=== PATIENT | female | born 1940 | race Caucasian/White ===

== ENCOUNTER → 2019-09-27 | Outpatient (CLI) | payer MEDICARE, MEDICAID ==
[~2019-09-27] MED LIST: REGADENOSON 0.4 MG/5 ML SYR (LEXISCAN) IV ONE
[2019-09-27 09:19] LABS: BASOPHILS # (AUTO) 0.1 10^3/uL (0.0-0.1); BASOPHILS % (AUTO) 1 % (0-10); EOSINOPHILS # (AUTO) 0.4 10^3/uL (0.0-0.3); EOSINOPHILS % (AUTO) 5 % (0-10); HEMATOCRIT 44 % (35-52); HEMOGLOBIN 13.7 G/DL (11.5-16.0); LYMPHOCYTES # (AUTO) 2.4 X 10^3 (1.0-4.0); LYMPHOCYTES % (AUTO) 25 % (12-44); MEAN CORPUSCULAR HEMOGLOBIN 27 PG (25-34); MEAN CORPUSCULAR HGB CONC 31 G/DL (32-36); MEAN CORPUSCULAR VOLUME 85 FL (80-99); MEAN PLATELET VOLUME 10.2 FL (7.4-10.4); MONOCYTES % (AUTO) 10 % (0-12); NEUTROPHILS # (AUTO) 5.5 X 10^3 (1.8-7.8); NEUTROPHILS % (AUTO) 59 % (42-75); PLATELET COUNT 268 10^3/uL (130-400); RED CELL DISTRIBUTION WIDTH 14.7 % (10.0-14.5); WHITE BLOOD COUNT 9.4 10^3/uL (4.3-11.0)
[2019-09-27 09:42] LABS: ALBUMIN 3.7 GM/DL (3.2-4.5); BILIRUBIN,TOTAL 0.4 MG/DL (0.1-1.0); CALCIUM 9.2 MG/DL (8.5-10.1); CREATININE SERUM 1.2 MG/DL (0.60-1.30); MAGNESIUM 1.8 MG/DL (1.6-2.4); POTASSIUM 4.6 MMOL/L (3.6-5.0); TOTAL PROTEIN 6.8 GM/DL (6.4-8.2)
[2019-09-27 09:56] LABS: ERYTHROCYTE SEDIMENTATION RATE 5 MM/HR (0-30)
--- NOTE | 2019-09-28 11:32 | STRESS TEST ---
DATE OF SERVICE: 09/27/2019 RESTING AND POST REGADENOSON TECHNETIUM-99M TETROFOSMIN SPECT CT IMAGING CLINICAL DIAGNOSES: Chronic diastolic congestive heart failure, shortness of breath, type 2 diabetes. Baseline images were carried out after injection of 10.84 mCi of technetium-99m Tetrofosmin. This was followed by 0.4 mg regadenoson and 32.5 mCi of technetium-99m Tetrofosmin for stress imaging. The electrocardiogram showed sinus rhythm with isolated premature atrial contractions. The electrocardiogram did not change significantly with regadenoson infusion. The patient tolerated the procedure well. Review of images at rest and following stress does not indicate any significant perfusion defects consistent with myocardial ischemia or infarction. Gated images show normal global left ventricular systolic function with normal regional wall motion. Left ventricular ejection fraction is calculated to be 82%. TID is absent (0.99). CONCLUSIONS: 1. No evidence of any significant myocardial ischemia or infarction on this study. 2. Normal regional wall motion. 3. Normal to hyperdynamic left ventricular systolic function with a calculated ejection fraction of 82%. Job ID: [id number] DocumentID: [id number] Dictated Date: 09/28/2019 08:49:27 [employer] Date: 09/28/2019 11:31:13 Dictated By: ZHAO SANFORD MD, MA, FACP, FACC,
== END ==
LOC: CARD 08:56
PROVIDERS: ATTEND Internal Medicine Cardiovascular Disease
DX: I48.0 Paroxysmal atrial fibrillation (principal); E11.9 Type 2 diabetes mellitus without complications; I50.32 Chronic diastolic (congestive) heart failure; I73.9 Peripheral vascular disease, unspecified
CPT/HCPCS: 36415; 78452; 80053; 80061; 83735; 85025; 85652; 93017; 93306; 93923

== ENCOUNTER → 2021-09-23 | Outpatient (CLI) | payer MEDICARE, MEDICAID | LOC: CARD 12:21 | PROVIDERS: ATTEND Nurse Practitioner Family | DX: I34.0 Nonrheumatic mitral (valve) insufficiency (principal); I51.7 Cardiomegaly; D17.9 Benign lipomatous neoplasm, unspecified | CPT/HCPCS: 93306 ==

== ENCOUNTER → 2021-12-24 | Outpatient (CLI) | payer MEDICARE, MEDICAID ==
[~2021-12-24] MED LIST changes: +CARV6.252 PO; -REGADENOSON 0.4 MG/5 ML SYR (LEXISCAN) IV ONE
[2021-12-24 12:55] LABS: CALCIUM 8.7 MG/DL (8.5-10.1); CREATININE SERUM 1.39 MG/DL (0.60-1.30); MAGNESIUM 1.9 MG/DL (1.6-2.4); POTASSIUM 4.2 MMOL/L (3.6-5.0)
== END ==
LOC: LAB 12:10
PROVIDERS: ATTEND Nurse Practitioner Family
DX: D17.9 Benign lipomatous neoplasm, unspecified (principal); I42.0 Dilated cardiomyopathy; I48.0 Paroxysmal atrial fibrillation; I34.0 Nonrheumatic mitral (valve) insufficiency; I50.42 Chronic combined systolic (congestive) and diastolic (congestive) heart failure
CPT/HCPCS: 36415; 80048; 83735

== ENCOUNTER 2021-12-27 13:34 | Emergency (ER) | payer MEDICARE, MEDICAID ==
[~2021-12-27] VITALS: Ht 154.9 cm; Wt 97.9 kg
--- NOTE | 2021-12-27 14:22 | ED Cardiac General ---
History of Present Illness General Chief Complaint: Cardiac/General Problems Stated Complaint: HEART PROBLEMS Nursing Triage Note: Pt arrival to ER after being sent here from Dr. Sparks office because she had a low blood pressure reading at home. Pt denies complaints and is unsure why she was sent here. Source: patient History of Present Illness Date Seen by Provider: Dec 27, 2021 Time Seen by Provider: 14:10 Initial Comments Patient is an 81-year-old female who presents to the emergency department today with a chief complaint of low blood pressure. Reportedly patient's home health nurse found her blood pressure to be in the 80s systolic and call Dr. Castillo's office, her muffler installer and they instructed her to come to the emergency department. Patient tells me that she was seen last evening at [facility] and was started on 2 new medications for rapid heartbeat. She states she had a post of labs done as well as chest x-ray and EKGs. She was started on Cardizem 120 and spironolactone 25 mg. She denies shortness of breath or chest pain. She denies swelling in her lower extremities. No fevers or chills. No GI or symptoms. Specifically no burning with urination. She has a history of atrial fibrillation in the past per review of her home medications she is anticoagulated on Xarelto. She does state with position change she feels a little bit dizzy. She is tired of feeling "sick". All other review of systems reviewed and negative except as stated. NTG SL LEVEL VIAL CURVATURE GAUGER: No ASA po LEVEL VIAL CURVATURE GAUGER: No Associated Systoms: Other (Slightly dizzy) Allergies and Home Medications Allergies Coded Allergies: No Known Allergies (Verified Allergy, Unknown, 04/01/06) Patient Home Medication List Home Medication List Reviewed: Yes Carvedilol (Carvedilol) 6.25 Mg Tablet, 6.25 MG PO BID Prescribed by: JIMY ENRIQUEZ on 12/27/21 1520 Review of Systems Review of Systems Constitutional: see HPI EENTM: No Symptoms Reported Respiratory: No Symptoms Reported Cardiovascular: No Symptoms Reported Gastrointestinal: No Symptoms Reported Genitourinary: Denies Burning; Frequency Musculoskeletal: no symptoms reported Skin: no symptoms reported Psychiatric/Neurological: Other (Mild dizziness with position) All Other Systems Reviewed Negative Unless Noted: Yes Past Antgfbi-Zkuffj-Bupvra Hx Patient Social History Tobacco Use?: No Use of E-Cig and/or Vaping dev: No Substance use?: No Alcohol Use?: No Pt feels they are or have been: No Immunizations Up To Date Influenza Vaccine Up-to-Date: No; Not Current Physical Exam Vital Signs Vital Signs - First Documented 12/27/21 13:49 Temp 36.6 Pulse 124 Resp 24 B/P (MAP) 111/58 (75) Pulse Ox 96 O2 Delivery Nasal Cannula Capillary Refill : Less Than 3 Seconds Height, Weight, BMI Height: '" Weight: lbs. oz. kg; 40.00 BMI Method: General Appearance: No Apparent Distress, WD/WN Neck: Normal Inspection Respiratory: Lungs Clear, Normal Breath Sounds, No Accessory Muscle Use, No Respiratory Distress Cardiovascular: Normal Peripheral Pulses, Irregularly Irregular (Rate in the mid 90s) Gastrointestinal: Non Tender, Soft Extremity: Normal Inspection, Normal Range of Motion, No Pedal Edema Neurologic/Psychiatric: Alert, Oriented x3, No Motor/Sensory Deficits, Normal Mood/Affect Skin: Normal Color, Warm/Dry Progress/Results/Core Measures Results/Orders Lab Results Laboratory Tests Test 12/27/21 14:44 Range/Units White Blood Count 11.1 H 4.3-11.0 10^3/uL Red Blood Count 3.55 L 3.80-5.11 10^6/uL Hemoglobin 8.6 L 11.5-16.0 g/dL Hematocrit 29 L 35-52 % Mean Corpuscular Volume 81 80-99 fL Mean Corpuscular Hemoglobin 24 L 25-34 pg Mean Corpuscular Hemoglobin Concent 30 L 32-36 g/dL Red Cell Distribution Width 17.1 H 10.0-14.5 % Platelet Count 255 130-400 10^3/uL Mean Platelet Volume 10.5 9.0-12.2 fL Immature Granulocyte % (Auto) 1 % Neutrophils (%) (Auto) 70 42-75 % Lymphocytes (%) (Auto) 14 12-44 % Monocytes (%) (Auto) 13 H 0-12 % Eosinophils (%) (Auto) 2 0-10 % Basophils (%) (Auto) 1 0-10 % Neutrophils # (Auto) 7.8 1.8-7.8 10^3/uL Lymphocytes # (Auto) 1.6 1.0-4.0 10^3/uL Monocytes # (Auto) 1.4 H 0.0-1.0 10^3/uL Eosinophils # (Auto) 0.2 0.0-0.3 10^3/uL Basophils # (Auto) 0.1 0.0-0.1 10^3/uL Immature Granulocyte # (Auto) 0.1 0.0-0.1 10^3/uL Sodium Level 142 135-145 MMOL/L Potassium Level 4.0 3.6-5.0 MMOL/L Chloride Level 98 98-107 MMOL/L Carbon Dioxide Level 30 21-32 MMOL/L Anion Gap 14 5-14 MMOL/L Blood Urea Nitrogen 36 H 7-18 MG/DL Creatinine 1.32 H 0.60-1.30 MG/DL Estimat Glomerular Filtration Rate 41 BUN/Creatinine Ratio 27 Glucose Level 157 H 70-105 MG/DL Calcium Level 8.8 8.5-10.1 MG/DL My Orders Orders - JIMY ENRIQUEZ MD Ekg Tracing (12/27/21 13:39) Ed Iv/Invasive Line Start (12/27/21 14:34) Cbc With Automated Diff (12/27/21 14:34) Basic Metabolic Panel (12/27/21 14:34) Ns (Ivpb) (Sodium Chloride 0.9%) (12/27/21 14:45) Medications Given in ED Current Medications Medications Dose Ordered Sig/Pasquale Route Start Time Stop Time Status Last Admin Dose Admin Sodium Chloride 250 ml @ 999 mls/hr Q16M ONCE IV 12/27/21 14:45 12/27/21 15:00 DC 12/27/21 14:48 999 MLS/HR Vital Signs/I&O 12/27/21 13:49 Temp 36.6 Pulse 124 Resp 24 B/P (MAP) 111/58 (75) Pulse Ox 96 O2 Delivery Nasal Cannula Blood Pressure Mean: 75 Progress Progress Note #1: Time: 14:28 Progress Note Discussed with Dr Castillo - will talk to the office and call me back Progress Note #2: Time: 14:[address] Castillo recommends rechecking her blood work, giving her a little fluid bolus and reducing the dose of her carvedilol down to 6.25 mg twice daily. Obvious replacement of electrolytes as needed. After that she can go home. Progress Note #3: Time: 15:18 Progress Note Patient reassessed, blood pressure has been consistently above 115 systolic. She is still without complaints. Heart rate is controlled in the low 90s upper 80s. She did receive her 250 saline bolus. We talked about her low hemoglobin. She states that she was quite "bound up" a few days ago and had to "dig it out". She states she bled "a lot". But she has not bled since then. She states she has pretty large external hemorrhoids. I encouraged her to follow-up with Dr. Cervantes regarding her blood count, that needs to be rechecked in a week. I did also encourage her to start taking an iron supplement daily. She is comfortable with this plan of care. All questions have been sought and answe red. She is also advised to follow-up with Dr. Castillo. Initial ECG Impression Date: Dec 27, 2021 Initial ECG Impression Time: 13:43 Initial ECG Rate: 123 Initial ECG Rhythm: A Fib/Flutter Comment Atrial fibrillation with rapid ventricular response at 123. No significant ST depression noted although she does have a little bit of change in the anterior leads. No ST segment elevation noted Departure Impression Primary Impression: Atrial fibrillation Qualified Codes: I48.11 - Longstanding persistent atrial fibrillation Additional Impressions: Low blood pressure reading Anemia Qualified Codes: D64.9 - Anemia, unspecified Disposition: 01 HOME, SELF-CARE Condition: Improved Departure-Patient Inst. Decision time for Depature: 15:11 Referrals: ZHAO CASTILLO MD FACP [facility] NORMA CERVANTES MD (PCP) Primary Care Physician Patient Instructions: Atrial Fibrillation (DC) Add. Discharge Instructions: Please continue all of your home medications except for the carvedilol 12.[address] Castillo would like you to take 6.25 mg twice daily. You can continue the diltiazem and the spironolactone as started last evening at [facility]. Take a daily Iron Supplement. Please call on Thursday for a follow-up appointment with Dr. Castillo. Please come back to the emergency department for any new, concerning or emergent complaints especially chest pain, palpitations, worsening shortness of breath or other emergent concerns. Follow up with Dr Cervantes on Thursday - you will need your blood counts rechecked soon. Scripts Carvedilol (Carvedilol) 6.25 Mg Tablet 6.25 MG PO BID, #60 TAB Prov: JIMY ENRIQUEZ MD 12/27/21 Copy Copies To 1: ZHAO CASTILLO MD FACP [facility] JIMY ENRIQUEZ MD Dec 27, 2021 14:22
[2021-12-27] MEDS ORDERED: NS (IVPB) 250 ML IV ONE (14:45)
[2021-12-27 14:50] LABS: BASOPHILS # (AUTO) 0.1 10^3/uL (0.0-0.1); BASOPHILS % (AUTO) 1 % (0-10); EOSINOPHILS # (AUTO) 0.2 10^3/uL (0.0-0.3); EOSINOPHILS % (AUTO) 2 % (0-10); HEMATOCRIT 29 % (35-52); HEMOGLOBIN 8.6 g/dL (11.5-16.0); LYMPHOCYTES # (AUTO) 1.6 10^3/uL (1.0-4.0); LYMPHOCYTES % (AUTO) 14 % (12-44); MEAN CORPUSCULAR HEMOGLOBIN 24 pg (25-34); MEAN CORPUSCULAR HGB CONC 30 g/dL (32-36); MEAN CORPUSCULAR VOLUME 81 fL (80-99); MEAN PLATELET VOLUME 10.5 fL (9.0-12.2); MONOCYTES # (AUTO) 1.4 10^3/uL (0.0-1.0); MONOCYTES % (AUTO) 13 % (0-12); NEUTROPHILS # (AUTO) 7.8 10^3/uL (1.8-7.8); NEUTROPHILS % (AUTO) 70 % (42-75); PLATELET COUNT 255 10^3/uL (130-400); WHITE BLOOD COUNT 11.1 10^3/uL (4.3-11.0)
[2021-12-27 15:07] LABS: CALCIUM 8.8 MG/DL (8.5-10.1); CREATININE SERUM 1.32 MG/DL (0.60-1.30)
[2021-12-27] MEDS ORDERED: CARV6.252 PO (15:20)
[2021-12-27 15:39] VITALS: BP 125/82
== END 2021-12-27 15:38 | disposition home or self-care (01) ==
LOC: EDUNIT# 13:34 → ER 13:37
DX: I48.11 Longstanding persistent atrial fibrillation (principal); D64.9 Anemia, unspecified; R03.0 Elevated blood-pressure reading, without diagnosis of hypertension; Z79.01 Long term (current) use of anticoagulants
CPT/HCPCS: 36415; 80048; 85025; 93005

== ENCOUNTER → 2022-01-07 | Outpatient (CLI) | payer MEDICARE, MEDICAID ==
[2022-01-07 13:21] LABS: ALBUMIN 3.7 GM/DL (3.2-4.5); POTASSIUM 4.5 MMOL/L (3.6-5.0)
[2022-01-07 13:22] LABS: CALCIUM 8.9 MG/DL (8.5-10.1)
[2022-01-07 13:23] LABS: TOTAL PROTEIN 6.3 GM/DL (6.4-8.2)
[2022-01-07 13:25] LABS: BILIRUBIN,TOTAL 0.7 MG/DL (0.1-1.0)
[2022-01-07 13:27] LABS: CREATININE SERUM 1.46 MG/DL (0.60-1.30)
[2022-01-07 13:30] LABS: MAGNESIUM 1.9 MG/DL (1.6-2.4)
== END ==
LOC: LAB 12:49
PROVIDERS: ATTEND Internal Medicine Cardiovascular Disease
DX: I48.0 Paroxysmal atrial fibrillation (principal); D17.9 Benign lipomatous neoplasm, unspecified; I42.0 Dilated cardiomyopathy; I34.0 Nonrheumatic mitral (valve) insufficiency; R06.02 Shortness of breath; I50.42 Chronic combined systolic (congestive) and diastolic (congestive) heart failure
CPT/HCPCS: 36415; 80053; 80162; 83735

== ENCOUNTER 2022-02-04 08:45 | Inpatient (IN) | payer MEDICARE, MEDICAID ==
[~2022-02-04] VITALS: Ht 197 cm; Wt 95.6 kg
[~2022-02-04 08:45] MED LIST changes: +ALB0.5V INH; +DIGO-20 PO; +DILT360T11 PO; +DOCU100T2 PO; +FAMO20TA3 PO; +FERR-65 PO; +FURO40TA4 PO; +GABA300C PO; +RT-ALBUINH INH
[2022-02-04] MEDS ORDERED: NS IV 1000 ML 1,000 ML IV SCH (09:30)
[2022-02-04 09:31] LABS: BASOPHILS # (AUTO) 0.2 10^3/uL (0.0-0.1); BASOPHILS % (AUTO) 2 % (0-10); EOSINOPHILS # (AUTO) 0.3 10^3/uL (0.0-0.3); EOSINOPHILS % (AUTO) 3 % (0-10); HEMATOCRIT 39 % (35-52); HEMOGLOBIN 10.9 g/dL (11.5-16.0); LYMPHOCYTES # (AUTO) 1.8 10^3/uL (1.0-4.0); LYMPHOCYTES % (AUTO) 17 % (12-44); MEAN CORPUSCULAR HEMOGLOBIN 23 pg (25-34); MEAN CORPUSCULAR HGB CONC 28 g/dL (32-36); MEAN CORPUSCULAR VOLUME 81 fL (80-99); MEAN PLATELET VOLUME 10.5 fL (9.0-12.2); MONOCYTES # (AUTO) 1.3 10^3/uL (0.0-1.0); MONOCYTES % (AUTO) 12 % (0-12); NEUTROPHILS # (AUTO) 7.3 10^3/uL (1.8-7.8); NEUTROPHILS % (AUTO) 67 % (42-75); PLATELET COUNT 388 10^3/uL (130-400); WHITE BLOOD COUNT 10.9 10^3/uL (4.3-11.0)
[2022-02-04 09:32] LABS: BILIRUBIN,URINE NEGATIVE (NEGATIVE); CLARITY,URINE CLEAR; COLOR,URINE YELLOW; GLUCOSE, URINE (UA) 3+ (NEGATIVE); KETONES,URINE NEGATIVE (NEGATIVE); LEUKOCYTE ESTERASE ,URINE NEGATIVE (NEGATIVE); NITRITE,URINE NEGATIVE (NEGATIVE); PROTEIN,URINE NEGATIVE (NEGATIVE)
[2022-02-04 09:39] LABS: BACTERIA,URINE TRACE /HPF; SQUAMOUS EPITHELIAL CELL,UR 0-2 /HPF
[2022-02-04 09:40] LABS: ALBUMIN 3.8 GM/DL (3.2-4.5); POTASSIUM 5.2 MMOL/L (3.6-5.0)
[2022-02-04 09:41] LABS: CALCIUM 8.4 MG/DL (8.5-10.1)
[2022-02-04 09:42] LABS: TOTAL PROTEIN 6.5 GM/DL (6.4-8.2)
[2022-02-04 09:44] LABS: BILIRUBIN,TOTAL 0.5 MG/DL (0.1-1.0)
[2022-02-04 09:46] LABS: CREATININE SERUM 1.7 MG/DL (0.60-1.30)
--- NOTE | 2022-02-04 09:47 | ED General ---
General Chief Complaint: Glucose Problems Stated Complaint: HIGH BLOOD SUGAR 700 Nursing Triage Note: PATIENT PRESENTS FROM [facility] WITH A BLOOD GLUCOSE GREATER THAN 700. PATIENT STATES SHE WAS HERE THIS AM FOR A PROCEDURE. Source of Information: Patient Exam Limitations: No Limitations History of Present Illness Date Seen by Provider: Feb 04, 2022 Time Seen by Provider: 09:20 Initial Comments Patient to the ER by private conveyance from the cardiac Offset Press Operator where she was going for a scheduled cardioversion for atrial fibrillation with Dr. Castillo. They report she had a blood sugar above 700. She says she is not had any new symptoms lately. She is not thinking very clearly according to her sister SIDDHARTH who accompanies her. No dysuria but she says she does have urgency of urine. No shortness of breath or cough. She uses oxygen 2 L as needed by nasal cannula at home. She is on Xarelto, Toujeo 30 units daily and Humalog 20 units 3 times daily. She states she has not been taking her insulin quite like she should here lately. She did not want to elaborate. Allergies and Home Medications Allergies Coded Allergies: [place] Known Allergies (Verified Allergy, Unknown, 04/01/06) Patient Home Medication List Home Medication List Reviewed: Yes Albuterol Sulfate (Ventolin Hfa) 1 Puff Puff, 2 PUFF INH QID, (Reported) Entered as Reported by: JUD BOYCE on 02/04/22 0840 Albuterol Sulfate (Albuterol Sulfate) 2.5 Mg/0.5 Ml Vial.neb, 2.5 MG INH TID PRN for AIR HUNGER, (Reported) Entered as Reported by: JUD BOYCE on 02/04/22 0840 Carvedilol (Carvedilol) 6.25 Mg Tablet, 6.25 MG PO BID Prescribed by: JIMY ENRIQUEZ on 12/27/21 1520 Digoxin (Lanoxin) 125 Mcg (0.125 Mg) Tablet, 125 MCG PO DAILY, (Reported) Entered as Reported by: JUD BOYCE on 02/04/22 0840 Diltiazem HCl (Diltiazem ER) 360 Mg Tab.er.24h, 360 MG PO DAILY, (Reported) Entered as Reported by: JUD BOYCE on 02/04/22 0840 Docusate Sodium (Docusate Sodium) 100 Mg Tablet, 100 MG PO DAILY, (Reported) Entered as Reported by: JUD BOYCE on 02/04/22839 Famotidine (Acid Division Sergeant (FAMOTIDINE)) 20 Mg Tablet, 20 MG PO BID, (Reported) Entered as Reported by: JUD BOYCE on 02/04/22839 Ferrous Sulfate (Feosol) 325 Mg (65 Mg Iron) Tablet, 325 MG PO, (Reported) Entered as Reported by: JUD BOCYE on 02/04/22839 Furosemide (Furosemide) 40 Mg Tablet, 40 MG PO DAILY, (Reported) Entered as Reported by: JUD BOYCE on 02/04/22839 Gabapentin (Neurontin) 300 Mg Capsule, 300 MG PO BID, (Reported) Entered as Reported by: JUD BOYCE on 02/04/22839 Review of Systems Review of Systems Constitutional: No chills, No diaphoresis EENTM: No ear discharge, No ear pain Respiratory: No cough, No short of breath Cardiovascular: No chest pain, No edema Gastrointestinal: No abdominal pain, No nausea, No vomiting Genitourinary: No discharge, No dysuria Musculoskeletal: No back pain, No joint pain All Other Systems Reviewed Negative Unless Noted: Yes Past Mgtcesm-Ddnaev-Yogpdv Hx Patient Social History Tobacco Use?: No Use of E-Cig and/or Vaping dev: No Substance use?: No Alcohol Use?: No Pt feels they are or have been: No Immunizations Up To Date Influenza Vaccine Up-to-Date: Yes; Up-to-Date Past Medical History Gallbladder COPD Atrial Fibrillation, Cardiomyopathy Physical Exam Vital Signs Vital Signs - First Documented 02/04/22 09:14 Temp 36.0 Pulse 100 Resp 18 B/P (MAP) 124/95 (105) Pulse Ox 98 O2 Delivery Nasal Cannula O2 Flow Rate 2.00 Capillary Refill : Less Than 3 Seconds Height, Weight, BMI Height: '" Weight: lbs. oz. kg; 23.00 BMI Method: General Appearance: No Apparent Distress, WD/WN Eyes: Bilateral Eye Normal Inspection, Bilateral Eye PERRL, Bilateral Eye EOMI HEENT: PERRL/EOMI, TMs Normal, Pharynx Normal, Moist Mucous Membranes Neck: Full Range of Motion, Normal Inspection Respiratory: Lungs Clear, Normal Breath Sounds, No Accessory Muscle Use, No Respiratory Distress Cardiovascular: Regular Rate, Rhythm, No Edema, Normal Peripheral Pulses Gastrointestinal: Normal Bowel Sounds, Non Tender, Soft Extremity: Normal Capillary Refill, Normal Inspection Neurologic/Psychiatric: Alert, Normal Mood/Affect, Other Skin: Normal Color, Warm/Dry Progress/Results/Core Measures Suspected Sepsis SIRS Temperature: Pulse: 100 Respiratory Rate: 18 Laboratory Tests 02/04/22 09:20: White Blood Count 10.9 Blood Pressure 124 /95 Mean: 105 Laboratory Tests 02/04/22 09:20: Creatinine 1.70H, Platelet Count 388, Total Bilirubin 0.5 Results/Orders Lab Results Laboratory Tests Test 02/04/22 09:20 02/04/22 09:46 Range/Units White Blood Count 10.9 4.3-11.0 10^3/uL Red Blood Count 4.77 3.80-5.11 10^6/uL Hemoglobin 10.9 L 11.5-16.0 g/dL Hematocrit 39 35-52 % Mean Corpuscular Volume 81 80-99 fL Mean Corpuscular Hemoglobin 23 L 25-34 pg Mean Corpuscular Hemoglobin Concent 28 L 32-36 g/dL Red Cell Distribution Width 18.8 H 10.0-14.5 % Platelet Count 388 130-400 10^3/uL Mean Platelet Volume 10.5 9.0-12.2 fL Immature Granulocyte % (Auto) 0 % Neutrophils (%) (Auto) 67 42-75 % Lymphocytes (%) (Auto) 17 12-44 % Monocytes (%) (Auto) 12 0-12 % Eosinophils (%) (Auto) 3 0-10 % Basophils (%) (Auto) 2 0-10 % Neutrophils # (Auto) 7.3 1.8-7.8 10^3/uL Lymphocytes # (Auto) 1.8 1.0-4.0 10^3/uL Monocytes # (Auto) 1.3 H 0.0-1.0 10^3/uL Eosinophils # (Auto) 0.3 0.0-0.3 10^3/uL Basophils # (Auto) 0.2 H 0.0-0.1 10^3/uL Immature Granulocyte # (Auto) 0.0 0.0-0.1 10^3/uL Urine Color YELLOW Urine Clarity CLEAR Urine pH 6.0 5-9 Urine Specific [place] <=1.005 1.016-1.022 Urine Protein NEGATIVE NEGATIVE Urine Glucose (UA) 3+ H NEGATIVE Urine Ketones NEGATIVE NEGATIVE Urine Nitrite NEGATIVE NEGATIVE Urine Bilirubin NEGATIVE NEGATIVE Urine Urobilinogen 0.2 < = 1.0 MG/DL Urine Leukocyte Esterase NEGATIVE NEGATIVE Urine RBC (Auto) NEGATIVE NEGATIVE Urine RBC NONE /HPF Urine WBC 5-10 H /HPF Urine Squamous Epithelial Cells 0-2 /HPF Urine Crystals NONE /LPF Urine Bacteria TRACE /HPF Urine Casts NONE /LPF Urine Mucus NEGATIVE /LPF Urine Culture Indicated YES Sodium Level 132 L 135-145 MMOL/L Potassium Level 5.2 H 3.6-5.0 MMOL/L Chloride Level 94 L 98-107 MMOL/L Carbon Dioxide Level 27 21-32 MMOL/L Anion Gap 11 5-14 MMOL/L Blood Urea Nitrogen 25 H 7-18 MG/DL Creatinine 1.70 H 0.60-1.30 MG/DL Estimat Glomerular Filtration Rate 30 BUN/Creatinine Ratio 15 Glucose Level 722 *H 70-105 MG/DL Calcium Level 8.4 L 8.5-10.1 MG/DL Corrected Calcium 8.6 8.5-10.1 MG/DL Magnesium Level 2.4 1.6-2.4 MG/DL Total Bilirubin 0.5 0.1-1.0 MG/DL Aspartate Amino Transf (AST/SGOT) 17 5-34 U/L Alanine Aminotransferase (ALT/SGPT) 29 0-55 U/L Alkaline Phosphatase 81 40-136 U/L C-Reactive Protein High Sensitivity 0.38 0.00-0.50 MG/DL Total Protein 6.5 6.4-8.2 GM/DL Albumin 3.8 3.2-4.5 GM/DL Beta-Hydroxybutyrate (Chem panel) 0.19 0.00-0.27 MMOL/L Blood Gas Puncture Site LEFT RADIAL Blood Gas Patient Temperature 36.6 Arterial Blood pH 7.29 *L 7.37-7.43 Arterial Blood Partial Pressure CO2 57 H 35-45 MMHG Arterial Blood Partial Pressure O2 157 H 79-93 MMHG Arterial Blood HCO3 27 23-27 MMOL/L Arterial Blood Total CO2 28.5 21.0-31.0 MMOL/L Arterial Blood Oxygen Saturation 100 94-100 % Arterial Blood Base Excess 0.8 -2.5-2.5 MMOL/L Rajesh Test POSITIVE Blood Gas Ventilator Setting NO Blood Gas Inspired Oxygen 2 L My Orders Orders - NOREEN,GERMAN J Accucheck Stat ONCE (02/04/22 09:25) Cbc With Automated Diff (02/04/22 09:25) Comprehensive Metabolic Panel (02/04/22 09:25) Hs C Reactive Protein (02/04/22 09:25) Ua Culture If Indicated (02/04/22 09:25) Beta Hydroxybutyrate (02/04/22 09:25) Magnesium (02/04/22 09:25) Ed Iv/Invasive Line Start (02/04/22 09:25) Ns Iv 1000 Ml (Sodium Chloride 0.9%) (02/04/22 09:30) Urine Culture (02/04/22 09:20) Insulin (Regular) Human (Novolin R (Per (02/04/22 10:00) Ceftriaxone 1 Gm Pre-Mix (Rocephin 1 Gm (02/04/22 10:00) Arterial Blood Gas (02/04/22 09:48) Insulin (Regular) Human (Novolin R (Per (02/04/22 10:15) Ed Iv/Invasive Line Start (02/04/22 10:11) Ns Iv 1000 Ml (Sodium Chloride 0.9%) (02/04/22 10:15) Bipap (Bilevel) Set Up (02/04/22 10:15) Insulin Determir (Per Unit) (Levemir (Pe (02/04/22 11:30) Ed Admission (Communication) (02/04/22 11:30) Medications Given in ED Current Medications Medications Dose Ordered Sig/Pasquale Route Start Time Stop Time Status Last Admin Dose Admin Ceftriaxone Sodium/Dextrose 50 ml @ 100 mls/hr ONCE ONCE IV 02/04/22 10:00 02/04/22 10:29 DC 02/04/22 09:58 100 MLS/HR Insulin Detemir 30 unit ONCE ONCE SQ 02/04/22 11:30 02/04/22 11:31 DC 02/04/22 12:26 30 UNIT Insulin Human Regular 7 unit ONCE ONCE IV 02/04/22 10:15 02/04/22 10:16 DC 02/04/22 10:16 7 UNIT Sodium Chloride 1,000 ml @ 0 mls/hr Q0M ONCE IV 02/04/22 10:15 02/04/22 10:16 DC 02/04/22 10:19 500 MLS/HR Vital Signs/I&O 02/04/22 02/04/22 09:14 10:25 Temp 36.0 Pulse 100 92 Resp 18 16 B/P (MAP) 124/95 (105) Pulse Ox 98 99 O2 Delivery Nasal Cannula O2 Flow Rate 2.00 25.00 Capillary Refill : Less Than 3 Seconds Blood Pressure Mean: 105 Progress Note : Time: 09:46 Progress Note DKA versus HHS? Plan to get some labs including an ABG given her respiratory status to make sure she is oxygenating well and not full of CO2. Plan to get a chest x-ray as well. Has clear lung sounds. Currently she is in atrial fibrillation with a rate around 90. She is on digoxin, metoprolol. She is also on Lasix I suspect her potassium could be low if she is actually taking it so we will hold off on giving any insulin just yet. Departure Communication (Admissions) Time/Spoke to Admitting Phy: 11:15 Discussed the case with Dr. Arriaga who agrees to put in queued orders. He agrees with BiPAP, Rocephin and placed in the ICU for potential need for insulin drip. Impression Primary Impression: Hyperglycemia Additional Impressions: Delirium COPD exacerbation UTI (urinary tract infection) Qualified Codes: N30.00 - Acute cystitis without hematuria Disposition: HOME, SELF-CARE Condition: Stable Admissions Decision to Admit Reason: Admit from ER (General) Decision to Admit/Date: Feb 04, 2022 Time/Decision to Admit Time: 11:00 Departure-Patient Inst. Referrals: NORMA CERVANTES MD (PCP/Family) Primary Care Physician GERMAN SORTO Feb 04, 2022 09:47
[2022-02-04 09:49] LABS: MAGNESIUM 2.4 MG/DL (1.6-2.4)
[2022-02-04 09:54] LABS: ABG BASE EXCESS 0.8 MMOL/L (-2.5-2.5); ABG OXYGEN SATURATION 100 % (94-100); ABG PCO2 57 MMHG (35-45); ABG PO2 157 MMHG (79-93); ABG TCO2 28.5 MMOL/L (21.0-31.0)
[2022-02-04 09:55] LABS: ABG PH 7.29 (7.37-7.43); ALLENS TEST POSITIVE; INSPIRED O2 2 L; PATIENT TEMP 36.6; VENTILATOR NO
[2022-02-04] MEDS ORDERED: inSUlin (REGULAR) HUMAN 1 UNIT/0.01 ML (CHARGE PER UNIT) SC ONE (10:00)
[2022-02-04] MEDS ORDERED: cefTRIAXone 1 GM PRE-MIX 50 ML IV ONE (10:00)
[2022-02-04] MEDS ORDERED: inSUlin (REGULAR) HUMAN 1 UNIT/0.01 ML (CHARGE PER UNIT) IV ONE (10:15)
[2022-02-04] MEDS ORDERED: NS IV 1000 ML 1,000 ML IV ONE (10:15)
[2022-02-04 10:25] VITALS: BP 123/68
[2022-02-04] MEDS ORDERED: ANTACID SUSP 30 ML UDC (MYLANTA) PO PRN (13:15)
[2022-02-04] MEDS ORDERED: ONDANSETRON 4 MG/2 ML (SDV) Z0FRAN IV PRN (13:15)
[2022-02-04] MEDS ORDERED: polyethylene glycoL POWDER 17 GM (MIRALAX) PACK PO PRN (13:15)
[2022-02-04] MEDS ORDERED: ONDANSETRON 4 MG (ZOFRAN) ORAL DISSOLVE TAB PO PRN (13:15)
[2022-02-04] MEDS ORDERED: MELATONIN 3 MG TABLET PO PRN (13:15)
[2022-02-04] MEDS ORDERED: ACETAMINOPHEN 325 MG TABLET PO PRN (13:15)
--- NOTE | 2022-02-04 13:25 | Occ Therapy Progress Note ---
Therapy Progress Note OT orders were received and chart was reviewed. RN reports that patient had just transferred to ICU room and is currently very confused. Nurse requests to hold therapy evals for today. OT to attempt again 02/05/22 if appropriate. Jessika Smith OT Feb 04, 2022 13:25
[2022-02-04] MEDS ORDERED: inSUlin ASPART (NovoLOG) 1 UNIT/0.01 ML (CHARGE PER UNIT) SC ONE (13:45)
--- NOTE | 2022-02-04 13:46 | Physical Therapy Progress Note ---
Therapy Progress Note PT orders were received and chart was reviewed. RN reports that patient had just transferred to ICU room and is currently very confused. Nurse requests to hold therapy evals for today. PT to attempt again 02/05/22 if appropriate. KAREN MEDINA PT Feb 04, 2022 13:46
[2022-02-04 14:10] VITALS: BP 109/72
--- NOTE | 2022-02-04 15:43 | Tele-ICU Consult ---
History of Present Illness History of Present Illness Date Seen by Provider: Feb 04, 2022 Time Seen by Provider: 15:43 Date of Admission (Tele-ICU Physician , consultation) Available chart/ vitals / labs / Images reviewed H&P is from ER notes Patient's information available about PMH, Shx, Fhx allergy reviewed in EMR. ROS as per chart and RN report Now in ICU, hemodynamically stable Video assessment done using teleICU camera, rest of exam as per RN Discussed with RN. Consultants: clint Hospital course: (02/04) 81f admitted for COPD exac. and Hyperglycemia. A/P Hyperglycemia with DM II ( not compliant with insulin regiment lately - as per Er note - not in DKA - long ans short actin insulin resumed - follow UTI ? - cx pending - abx x1 given JOSE/CKD - gentle hydration , follow Cr , Uop and K A fib - rate controlled - AC with xarelto, INR also 1.7 - ECHO 08/2021- EF 50% , MR - mod - IN [employer] ARCHITECT THIS AM for was going for a scheduled cardioversion - diverted to ER with BS>700 Acute on chronic resp failure - BIPAP 12/02 25% rr 12 tv 570 MV 7 L - repeat abg COPD - exacerbation with mild resp acidosis ( home 2 l o2 prn ) Anemia - stable Lines : peripg (Central Line Necessity Reviewed) Evans: + OG: Nutrition: Analgesia: Anxiety/ delirium VTE Prophylaxis: was on xarelto Stress Ulcer Prophylaxis: na Plans in collaboration with bedside consultants and IM MDs. Discussed with RN to reach out if any questions or concerns A total of 31 minutes of critical care time was devoted to this patient today, required to treat and/or prevent further deterioration of critical care condition ( as above ) . Allergies and Home Medications Allergies Coded Allergies: NKANo Known Allergies (Verified Allergy, Unknown, 04/01/06) Home Medications Albuterol Sulfate 1 Puff Puff, 2 PUFF INH QID, (Reported) 1 PUFF = 90 MCG Albuterol Sulfate 2.5 Mg/0.5 Ml Vial.neb, 2.5 MG INH TID PRN for AIR HUNGER, (Reported) Carvedilol 6.25 Mg Tablet, 6.25 MG PO BID Prescribed by: JIMY ENRIQUEZ on 12/27/21 1520 Digoxin 125 Mcg (0.125 Mg) Tablet, 125 MCG PO DAILY, (Reported) Diltiazem HCl 360 Mg Tab.er.24h, 360 MG PO DAILY, (Reported) Docusate Sodium 100 Mg Tablet, 100 MG PO DAILY, (Reported) Famotidine 20 Mg Tablet, 20 MG PO BID, (Reported) Furosemide 40 Mg Tablet, 40 MG PO DAILY, (Reported) Gabapentin 300 Mg Capsule, 300 MG PO BID, (Reported) Past Medical/Social/Family Hx Patient Social History Tobacco Use?: No Use of E-Cig and/or Vaping dev: No Substance use?: No Alcohol Use?: No Pt stated abuse/neglect: No Immunizations Up To Date Influenza Vaccine Up-to-Date: Yes; Up-to-Date Tetanus Booster (TDap): Unknown Current Status status: No Advance Directives: Yes Communicates: Verbally Primary Language: Spanish Preferred Spoken Language: Spanish Is interpretation needed?: No Sensory deficits: Vision impairment Implanted or Applied Medical D: None Review of Systems Constitutional: see HPI Focused Exam Height, Weight, BMI Height: '" Weight: lbs. oz. kg; 24.47 BMI Method: Exam Exam Patient acknowledged, consented, and participated in this virtual visit which was conducted using real time audio/video Vital Signs Date Time Temp Pulse Resp B/P (MAP) Pulse Ox O2 Delivery O2 Flow Rate FiO2 02/04/22 15:15 96 NIV Bilevel 25 02/04/22 15:00 84 19 110/58 94 02/04/22 14:10 82 12 94 25.00 02/04/22 14:00 97 13 109/72 95 02/04/22 14:00 97 02/04/22 13:22 96 NIV Bilevel 25 02/04/22 13:22 NIV Bilevel 25.00 02/04/22 13:21 36.6 02/04/22 13:05 92 14 104/89 93 Room Air 25.00 02/04/22 13:00 110/72 02/04/22 10:25 92 16 99 25.00 02/04/22 09:14 36.0 100 18 124/95 (105) 98 Nasal Cannula 2.00 Height & Weight Height: '" Weight: lbs. oz. kg; 24.47 BMI Method: General Appearance: No Apparent Distress Capillary Refill: Less Than 3 Seconds Results Lab Laboratory Tests 02/04/22 09:20 Assessment/Plan Assessment/Plan ` EVERETT GREENWOOD MD Feb 04, 2022 15:43
[2022-02-04] MEDS ORDERED: inSUlin ASPART (NovoLOG) 1 UNIT/0.01 ML (CHARGE PER UNIT) SC SCH (16:00)
[2022-02-04 16:27] LABS: ABG BASE EXCESS 2.1 MMOL/L (-2.5-2.5); ABG OXYGEN SATURATION 95 % (94-100); ABG PCO2 55 MMHG (35-45); ABG PO2 77 MMHG (79-93); ABG TCO2 29.4 MMOL/L (21.0-31.0)
[2022-02-04 16:28] LABS: ABG PH 7.32 (7.37-7.43); ALLENS TEST POSITIVE; INSPIRED O2 25% BIPAP; PATIENT TEMP 36.3; VENTILATOR NO
[2022-02-04 16:46] LABS: CALCIUM 8.1 MG/DL (8.5-10.1); CREATININE SERUM 1.37 MG/DL (0.60-1.30); POTASSIUM 4.9 MMOL/L (3.6-5.0)
[2022-02-04] MEDS ORDERED: RIVAROXABAN 20 MG TABLET (XARELTO) PO SCH (17:00)
[2022-02-04 18:38] VITALS: BP 102/74
--- NOTE | 2022-02-04 19:01 | History & Physical-Hospitalist ---
History of Present Illness HPI/Chief Complaint Lidia Rodriguez is an 81 year old female with PMH HTN, T2DM, AFib, COPD, chronic respiratory failure with hypoxia, who presented for an outpatient cardioversion but was found to have severe hyperglycemia. She is an insulin dependent diabetic but reportedly had not been taking her medications as prescribed. She has been fatigued. She had been a bit confused earlier today. She is feeling better now. She denies shortness of breath. She denies chest pain. She denies nausea and vomiting. She is resting comfortably in bed with her son at the bedside. Source: patient Exam Limitations: no limitations Date Seen 02/04/22 Time Seen by a Provider: 18:10 Attending Physician Martell Palm MD PCP Admitting Physician: Frances De Los Santos MD Attending Physician: Frances De Los Santos MD Referring Physician Date of Admission Feb 04, 2022 at 11:30 Home Medications & Allergies Home Medications Reviewed patient Home Medication Reconciliation performed by pharmacy medication reconciliations radiography technician and/or nursing. Patients Allergies have been reviewed. Allergies Allergies Coded Allergies NKANo Known Allergies (Verified Allergy, Unknown, 04/01/06) Past Npngztt-Hojcjy-Axbrjh Hx Patient Social History Tobacco Use?: No Use of E-Cig and/or Vaping dev: No Substance use?: No Alcohol Use?: No Pt feels they are or have been: No Immunizations Up To Date Tetanus Booster (TDap): Unknown Current Status status: No Advance Directives: Yes Communicates: Verbally Primary Language: Gabonese Preferred Spoken Language: Gabonese Is interpretation needed?: No Sensory deficits: Vision impairment Implanted or Applied Medical D: None Past Medical History Surgeries: Gallbladder COPD Atrial Fibrillation, Cardiomyopathy Family Medical History No Pertinent Family Hx Review of Systems Constitutional: weakness EENTM: no symptoms reported Respiratory: short of breath Gastrointestinal: no symptoms reported Genitourinary: no symptoms reported Musculoskeletal: no symptoms reported Skin: no symptoms reported Psychiatric/Neurological: No Symptoms Reported Physical Exam Physical Exam Vital Signs Vital Signs - First Documented 02/04/22 02/04/22 09:14 13:22 Temp 36.0 Pulse 100 Resp 18 B/P (MAP) 124/95 (105) Pulse Ox 98 O2 Delivery Nasal Cannula O2 Flow Rate 2.00 FiO2 25 Capillary Refill : Less Than 3 Seconds Height, Weight, BMI Height: '" Weight: lbs. oz. kg; 24.47 BMI Method: General Appearance: No Apparent Distress, Chronically ill, Other (wearing BiPAP) HEENT: PERRL/EOMI Neck: Normal Inspection, Supple Respiratory: No Respiratory Distress, Decreased Breath Sounds Cardiovascular: No Murmur, Irregularly Irregular Gastrointestinal: Normal Bowel Sounds, Non Tender, Soft Extremity: Normal Inspection, No Pedal Edema Neurologic/Psychiatric: Alert, Normal Mood/Affect Skin: Normal Color, Warm/Dry Results Results/Procedures Labs Laboratory Tests 02/04/22 09:20 02/04/22 16:15 Patient resulted labs reviewed. Imaging: Reviewed Imaging Report Assessment/Plan Admission Diagnosis T2DM with HHS Admission Status: Inpatient Order (span 2 midnights) Reason for Inpatient Admission: Respiratory failure Hyperglycemia Assessment and Plan T2DM with HHS Blood glucose >700 No elevated anion gap Normal beta hydroxybutyrate Serum osmolality pending Given Levemir 30 units, continue daily Begin sliding scale insulin Novolog with meals Diabetes education Acute on chronic respiratory failure with hypoxia and hypercapnia COPD TeleICU consulted MAT protocol BiPAP HTN AFib Continue home meds DVT prophylaxis: already receiving therapeutic anticoagulation Critical Care Critically Ill Patient Diagnosis/Problems Diagnosis/Problems (1) Type 2 diabetes mellitus with hyperosmolar hyperglycemic state (HHS) Status: Acute (2) Acute on chronic respiratory failure with hypoxia and hypercapnia Status: Acute FRANCES DE LOS SANTOS MD Feb 04, 2022 19:01
[2022-02-04] MEDS: GABAPENTIN 300 MG (NEURONTIN) CAP PO SCH (20:39)
[2022-02-04] MEDS: hydrOXYzine (VISTARIL/ATARAX) 25 MG capsule/tablet PO SCH (20:39)
[2022-02-04] MEDS: inSUlin ASPART (NovoLOG) 1 UNIT/0.01 ML (CHARGE PER UNIT) SC SCH (20:40)
[2022-02-04] MEDS ORDERED: hydrOXYzine (ATARAX) 10 MG TAB PO SCH (21:00)
[2022-02-04] MEDS ORDERED: DOXEPIN 10 MG (SINEquan) CAP PO SCH (21:00)
[2022-02-04 21:59] VITALS: BP 104/65
[2022-02-05] MEDS: inSUlin ASPART (NovoLOG) 1 UNIT/0.01 ML (CHARGE PER UNIT) SC SCH ×4 (00:05→13:43)
[2022-02-05 02:35] VITALS: BP 98/59
[2022-02-05 03:12] LABS: BASOPHILS # (AUTO) 0.1 10^3/uL (0.0-0.1); BASOPHILS % (AUTO) 1 % (0-10); EOSINOPHILS # (AUTO) 0.3 10^3/uL (0.0-0.3); EOSINOPHILS % (AUTO) 3 % (0-10); HEMATOCRIT 35 % (35-52); HEMOGLOBIN 9.9 g/dL (11.5-16.0); LYMPHOCYTES # (AUTO) 1.7 10^3/uL (1.0-4.0); LYMPHOCYTES % (AUTO) 17 % (12-44); MEAN CORPUSCULAR HEMOGLOBIN 23 pg (25-34); MEAN CORPUSCULAR HGB CONC 29 g/dL (32-36); MEAN CORPUSCULAR VOLUME 81 fL (80-99); MEAN PLATELET VOLUME 10.4 fL (9.0-12.2); MONOCYTES # (AUTO) 0.9 10^3/uL (0.0-1.0); MONOCYTES % (AUTO) 9 % (0-12); NEUTROPHILS # (AUTO) 6.9 10^3/uL (1.8-7.8); NEUTROPHILS % (AUTO) 70 % (42-75); PLATELET COUNT 326 10^3/uL (130-400); WHITE BLOOD COUNT 9.9 10^3/uL (4.3-11.0)
[2022-02-05 03:21] LABS: POTASSIUM 4.1 MMOL/L (3.6-5.0)
[2022-02-05 03:26] LABS: CREATININE SERUM 1.01 MG/DL (0.60-1.30)
[2022-02-05 03:29] LABS: MAGNESIUM 2.1 MG/DL (1.6-2.4)
[2022-02-05] MEDS ORDERED: KCL 20 MEQ TAB (K-DUR) PO SCH (06:00)
[2022-02-05] MEDS ORDERED: POTASSIUM CL 10MEQ/50ML IVPB 50 ML IV SCH (06:00)
[2022-02-05] MEDS ORDERED: MAGNESIUM 1 GM/100 ML IVPB 100 ML IV SCH (06:00)
[2022-02-05] MEDS ORDERED: LACTATED RINGERS 1,000 ML IV SCH (06:30)
[2022-02-05 06:53] LABS: ABG BASE EXCESS 2.8 MMOL/L (-2.5-2.5); ABG OXYGEN SATURATION 92 % (94-100); ABG PCO2 53 MMHG (35-45); ABG PO2 61 MMHG (79-93); ABG TCO2 29.7 MMOL/L (21.0-31.0)
[2022-02-05] MEDS ORDERED: VENlafaxine XR 75 MG (EFFEXOR XR) CAP PO SCH (07:00)
[2022-02-05 07:02] LABS: ABG PH 7.34 (7.37-7.43); ALLENS TEST YES-POS
[2022-02-05 07:03] LABS: INSPIRED O2 25% BIPAP; PATIENT TEMP 36.8; VENTILATOR NO
[2022-02-05 07:14] VITALS: BP 114/95
[2022-02-05] MEDS ORDERED: SPIRONOLACTONE 25 MG (ALDACTONE) TAB PO SCH (09:00)
[2022-02-05] MEDS ORDERED: FAMOTIDINE 20 MG (PEPCID) TABLET PO SCH (09:00)
[2022-02-05] MEDS ORDERED: FUROSEMIDE 40 MG (LASIX) TAB PO SCH (09:00)
[2022-02-05] MEDS: GABAPENTIN 300 MG (NEURONTIN) CAP PO SCH (09:24)
[2022-02-05] MEDS: hydrOXYzine (VISTARIL/ATARAX) 25 MG capsule/tablet PO SCH ×2 (09:24→13:44)
--- NOTE | 2022-02-05 09:29 | Tele-ICU Progress Note ---
Subjective Date Seen by a Provider: Feb 05, 2022 Time Seen by a Provider: 08:40 Subjective/Events-last exam This virtual visit was conducted using real time audio/video. Thank you for asking us to see this patient for respiratory insufficiency due to AECOPD. Also hyperglycemia. Recent events: PMH: COPD, afib, to have cardioversion. PE: VSS. O2 sat 96% on BiP 15/6, 25%. HEENT: No obvious masses, adenopathy or JVD. Chest: diminished and coarse on auscultation. CV: RRR S1 S2 No murmur or added sounds. Abd: Non-tender. Bowel sounds Y. : Unremarkable. Evans Y. SETTER HELPER/psychiatric: Grossly intact. No obvious focal findings. Extremities: 1-2+ edema. Capillary refill < 3 seconds. Skin: unremarkable. Results: Elevated BG 138. Decreased HB 9.9. AB.34/53/61 on 25%. Available chart/ vitals / labs / images reviewed. Video assessment done using teleICU camera, rest of exam as per RN. A/P: Respiratory insufficiency: Continue present management with BiPAP 15/6, 25%. Monitor for increasing oxygenation needs and/or need for intubation. Critical Care: critically ill patient. Cont. Og, billie., lasix, pepcid, SSi, Levtremaineir. Discussed with PARADISE Mix.. Asked RN to reach out to eICU if any questions or concerns later. Time spent with patient/coordination of care with other health professionals (mins): 28 Sepsis Event Evaluation Height, Weight, BMI Height: '" Weight: lbs. oz. kg; 24.47 BMI Method: Exam Exam Patient acknowledged, consented, and participated in this virtual visit which was conducted using real time audio/video Vital Signs Date Time Temp Pulse Resp B/P (MAP) Pulse Ox O2 Delivery O2 Flow Rate FiO2 02/05/22 09:00 121 17 88/78 97 NIV Bilevel 25.00 02/05/22 08:00 110 19 98/67 97 NIV Bilevel 25.00 02/05/22 07:37 35.9 02/05/22 07:14 115 17 96 25.00 02/05/22 07:00 117 16 114/95 95 NIV Bilevel 25.00 02/05/22 07:00 117 02/05/22 06:00 101 11 95/67 96 NIV Bilevel 25.00 02/05/22 05:00 98 11 98/65 96 NIV Bilevel 25.00 02/05/22 04:05 36.0 02/05/22 04:00 91 11 93/66 94 NIV Bilevel 25.00 02/05/22 03:59 96 NIV Bilevel 25 02/05/22 03:00 110 12 94/58 98 NIV Bilevel 25.00 02/05/22 02:35 105 19 96 25.00 02/05/22 02:00 93 13 98/59 94 NIV Bilevel 25.00 02/05/22 01:00 92 20 103/71 96 NIV Bilevel 25.00 02/05/22 01:00 114 02/05/22 00:21 96 NIV Bilevel 25 02/05/22 00:15 103 13 96 NIV Bilevel 25.00 02/05/22 00:00 36.2 02/05/22 00:00 96 17 108/62 99 Nasal Cannula 5.00 02/04/22 23:00 84 18 110/81 100 Nasal Cannula 5.00 02/04/22 22:00 90 17 105/70 96 NIV Bilevel 25.00 02/04/22 21:59 89 19 99 25.00 02/04/22 21:00 98 13 104/65 97 NIV Bilevel 25.00 02/04/22 20:00 82 12 95/68 95 NIV Bilevel 25.00 02/04/22 20:00 95 NIV Bilevel 25 02/04/22 19:36 36.8 02/04/22 19:00 88 17 104/69 96 NIV Bilevel 25.00 02/04/22 19:00 99 02/04/22 18:38 83 27 97 25.00 02/04/22 18:00 93 20 102/74 100 NIV Bilevel 25.00 02/04/22 17:00 84 12 104/66 98 NIV Bilevel 25.00 02/04/22 16:00 85 20 106/57 96 NIV Bilevel 25.00 02/04/22 15:59 36.2 02/04/22 15:15 96 NIV Bilevel 25 02/04/22 15:00 84 19 110/58 94 02/04/22 14:10 82 12 94 25.00 02/04/22 14:00 97 13 109/72 95 02/04/22 14:00 97 02/04/22 13:22 96 NIV Bilevel 25 02/04/22 13:22 NIV Bilevel 25.00 02/04/22 13:21 36.6 02/04/22 13:05 92 14 104/89 93 Room Air 25.00 02/04/22 13:00 110/72 02/04/22 10:25 92 16 99 25.00 I & O 02/05/22 07:00 Intake Total 2450 ml Output Total 650 ml Balance 1800 ml Height & Weight Height: '" Weight: lbs. oz. kg; 24.47 BMI Method: General Appearance: No Apparent Distress, Chronically ill, Other (wearing BiPAP) HEENT: PERRL/EOMI Neck: Normal Inspection, Supple Respiratory: No Respiratory Distress, Decreased Breath Sounds Cardiovascular: No Murmur, Irregularly Irregular Capillary Refill: Less Than 3 Seconds Extremity: Normal Inspection, No Pedal Edema Neurologic/Psychiatric: Alert, Normal Mood/Affect Skin: Normal Color, Warm/Dry Results Lab Laboratory Tests 02/04/22 09:20 02/04/22 16:15 02/05/22 03:05 Assessment/Plan Assessment/Plan See free text. Critical Care: Critically Ill Patient NEELIMA EISENBERG MD Feb 05, 2022 09:29
--- NOTE | 2022-02-05 10:09 | Occupational Therapy Eval ---
OT Evaluation-General/PLF Medical Diagnosis Admission Date Feb 04, 2022 at 11:30 Medical Diagnosis: T2DM with HHS, respiratory failure Onset Date: Feb 04, 2022 Therapy Diagnosis Therapy Diagnosis: reduced adl status Precautions Precautions/Isolations: Fall Prevention, Standard Precautions Referral Physician: Corina Rios Reason: Evaluation/Treatment Medical History Pertinent Medical History: COPD, DM, HTN Additional Medical History chronic respiratory failure Current History Pt was scheduled for outpatient cardioversion but was found to have severe hyperglycemia. BS >700. Admitted to ICU. Per patient, she lives with her sister in a single story home. Her sister manages all the iadls but pt was indep with adls except supervision for showers. She uses both a walker and a cane at baseline and is on 2L at night and PRN during the day. Reviewed History: Yes Social History Home: Single Level Current Living Status: Other Family Entry Into Home: Ramp ADL-Prior Level of Function SCALE: Activities may be completed with or without assistive devices. 7-Pystaztwvs-jhypbkh completes the activity by him/herself with no assistance from a helper. 5-Set-up or Clean-up Assistance-helper sets up or cleans up; patient completes activity. [place] assists only prior to or following the activity. 4-Supervision or Touching Assistance-helper provides verbal cues and/or touching/steadying and/or contact guard assistance as patient completes activity. Assistance may be provided throughout the activity or intermittently. 3-Partial/Moderate Assistance-helper does LESS THAN HALF the effort. [place] lifts, holds or supports trunk or limbs, but provides less than half the effort. 2-Substantial/Maximal Assistance-helper does MORE THAN HALF the effort. [place] lifts or holds trunk or limbs and provides more than half the effort. 5-Wloemwplj-nzjfjg does ALL the effort. Patient does none of the effort to complete the activity. Or, the assistance of 2 or more helpers is required for the patient to complete the activity. If activity was not attempted, code reason: 7-Patient Refused. 9-Not Applicable-not attempted and the patient did not perform the activity before the current illness, exacerbation or injury. 10-Not Attempted due to Environmental Limitations-(lack of equipment, weather restraints, etc.). 88-Not Attempted due to Medical Conditions or Safety Concerns. Self Care: Independent Functional Cognition: Needed Some Help DME/Equipment: Bath Chair, Tub/Shower Drive Self: No OT Current Status Subjective Pt denies pain, agreeable to evaluation. Appearance Pt returned to supine in bed, all needs within reach and RN notified at therapy departure. Mental Status/Objective Patient Orientation: Person Attachments: Evans Catheter, IV, Oxygen, Telemetry Current Upper Extremity ROM WNL Upper Extremity Strength 3+/5 grossly ADL-Treatment On/Off Footwear (QC): 1 Toileting Hygiene (QC): 1 Pt supine in bed with BiPap donned at OT arrival. Per RN, BiPap could be removed and 3L O2 NC could be donned. BP at rest: 88/78. Supine<>sit: Min-mod a. Immediately after sitting upright, pt's heart rate continued to rapidly increase until therapy lied her back down. HR increased from low 100's to 165 within seconds. Immediately after laying down, HR decreased to 130's. While pt was sitting up, OT notices incontinence of stool. Min-mod a to roll R/L in order for OT to perform blue care. Dep x2 to supine scoot towards HOB. RN notified. Education OT Patient Education: Correct positioning, Modified ADL techniques, Purpose of tx/functional activities, Safety issues, Transfer techniques Teaching Recipient: Patient Teaching Methods: Demonstration, Discussion Response to Teaching: Verbalize Understanding, Reinforcement Needed OT Roller Hand Goals Nursing Home Goals Time Frame: Feb 26, 2022 Eating (QC): 5 Oral Hygiene (QC): 5 Toileting Hygiene (QC): 4 Shower/Bathe Self (QC): 3 Upper Body Dressing (QC): 4 Lower Body Dressing (QC): 4 On/Off Footwear (QC): 4 1=Demonstrate adherence to instructed precautions during ADL tasks. 2=Patient will verbalize/demonstrate understanding of assistive devices/modifications for ADL. 3=Patient will improve strength/tolerance for activity to enable patient to perform ADL's. OT Education/Plan Problem List/Assessment Assessment: Decreased Activ Tolerance, Decreased Safety Aware, Decreased UE Strength, Impaired Bed Mobility, Impaired Funct Balance, Impaired Self-Care Skills Discharge Recommendations Plan/Recommendations: Continue POC Therapy Discharge Recommendati: Post Acute OT Treatment Plan/Plan of Care Treatment,Training & Education: Yes Patient would benefit from OT for education, treatment and training to promote independence in ADL's, mobility, safety and/or upper extremity function for ADL's. Plan of Care: ADL Retraining, Cognitive Retraining, Functional Mobility, Group Exercise/Act as Ind, UE Funct Exercise/Act Treatment Duration: Feb 26, 2022 Frequency: 3 times per week (3-5x/week) Estimated Hrs Per Day: .25 hour per day Agreement: Yes Time/GCodes Start Time: 08:58 Stop Time: 09:16 Total Time Billed (hr/min): 18 Billed Treatment Time 1 visit Jessika Srivastava OT Feb 05, 2022 10:09
--- NOTE | 2022-02-05 10:11 | Physical Therapy Evaluation ---
PT Evaluation-General Medical Diagnosis Admission Date Feb 04, 2022 at 11:30 Medical Diagnosis: resp failure Onset Date: Feb 04, 2022 Therapy Diagnosis Therapy Diagnosis: impaired mobility Precautions Precautions/Isolations: Fall Prevention, Standard Precautions Referral Physician: Corina Reason for Referral: Evaluation/Treatment Medical History Additional Medical History Past Medical History Surgeries: Gallbladder COPD Atrial Fibrillation, Cardiomyopathy Reviewed History: Yes Social History Home: Single Level Current Living Status: Other Family (sister) Entry Into Home: Ramp Prior Prior Level of Function SCALE: Activities may be completed with or without assistive devices. 0-Elboqkcbrr-rbbolkm completes the activity by him/herself with no assistance from a helper. 5-Set-up or Clean-up Assistance-helper sets up or cleans up; patient completes activity. [place] assists only prior to or following the activity. 4-Supervision or Touching Assistance-helper provides verbal cues and/or touching/steadying and/or contact guard assistance as patient completes activity. Assistance may be provided throughout the activity or intermittently. 3-Partial/Moderate Assistance-helper does LESS THAN HALF the effort. [place] lifts, holds or supports trunk or limbs, but provides less than half the effort. 2-Substantial/Maximal Assistance-helper does MORE THAN HALF the effort. [place] lifts or holds trunk or limbs and provides more than half the effort. 3-Hnaqwsjwh-patwnj does ALL the effort. Patient does none of the effort to complete the activity. Or, the assistance of 2 or more helpers is required for the patient to complete the activity. If activity was not attempted, code reason: 7-Patient Refused. 9-Not Applicable-not attempted and the patient did not perform the activity before the current illness, exacerbation or injury. 10-Not Attempted due to Environmental Limitations-(lack of equipment, weather restraints, etc.). 88-Not Attempted due to Medical Conditions or Safety Concerns. Bed Mobility: 6 Transfers (B,C,W/C): 6 Gait: 6 Indoor Mobility (Ambulation): Independent SPC PT Evaluation-Current Subjective Patient in bed pre tx, agrees to PT, has no complaints of pain. Pt/Family Goals to be independent at home Objective Patient Orientation: Person, Place, Situation Attachments: Oxygen, Evans Catheter, IV ROM/Strength ROM Lower Extremities WNL Sensory Vision: Functional Hearing: Functional Transfers Roll Left to Right (QC): 6 Sit to Lying (QC): 3 Lying to Sitting/Side of Bed(Q: 3 Patient sat to the side of the bed with min/mod assist, almost immediately her HR started increasing and just steadily kept going up until she layed back down, got up to 165bpm. After laying back down her HR quickly went down to about 116bpm. She had soiled the bed a bit, she rolled from side to side on her own to clean and change pad and then was scooted up in bed. Assessment/Needs Patient in bed post tx with nurse call, phone, tray, all needs met. Patient has impaired mobility, her HR increases significantly with activity. Rehab Potential: Guarded PT Custodial Goals Custodial Goals PT Test Examiner Goals Time Frame: Feb 12, 2022 Roll Left & Right (QC): 6 Sit to Lying (QC): 4 Lying-Sitting on Side/Bed(QC): 4 Sit to Stand (QC): 4 Chair/Lht-tv-Trzma Xfer(QC): 4 Walk 10 feet (QC): 4 Walk 50ft with 2 Turns (QC): 4 PT Plan Problem List Problem List: Activity Tolerance, Functional Strength, Safety, Balance, Gait, Transfer, Bed Mobility, ROM Treatment/Plan Treatment Plan: Continue Plan of Care Treatment Plan: Bed Mobility, Education, Functional Activity [place], Functional Strength, Gait, Safety, Therapeutic Exercise, Transfers Treatment Duration: Feb 12, 2022 Frequency: 6 times per week Estimated Hrs Per Day: .25 hour per day Patient and/or Family Agrees t: Yes Safety Risks/Education Patient Education: Correct Positioning, Safety Issues Teaching Recipient: Patient Teaching Methods: Demonstration, Discussion Response to Teaching: Reinforcement Needed Discharge Recommendations Plan Patient will perform bed mobility and transfer training, balance and endurance training, functional strengthening, stair training, gait training, and education, to improve functional mobility and independence at home. Therapy Discharge Recommendati: Scheduled Assistance, Home & Family, Post Acute PT Time/GCodes Time In: 901 Time Out: 915 Total Billed Treatment Time: 14 Total Billed Treatment 1 visit THEODORA SCHMIDT PT Feb 05, 2022 10:11
[2022-02-05] MEDS ORDERED: inSUlin ASPART (NovoLOG) 1 UNIT/0.01 ML (CHARGE PER UNIT) SC SCH ×2 (11:00)
[2022-02-05] MEDS ORDERED: INSU100I10 SQ (11:54)
[2022-02-05] MEDS ORDERED: INSU100I14 SQ (11:54)
--- NOTE | 2022-02-05 17:05 | Discharge Summary ---
Discharge Summary Hospital Course Problems/Dx: (1) Type 2 diabetes mellitus with hyperosmolar hyperglycemic state (HHS) Status: Acute (2) Acute on chronic respiratory failure with hypoxia and hypercapnia Status: Acute Hospital Course Date of Admission: Feb 04, 2022 at 11:30 Admission Diagnosis : T2DM with HHS Family Physician/Provider: Martell Palm MD Date of Discharge: 02/05/22 Discharge Diagnosis: T2DM with HHS Hospital Course: Lidia Rodriguez is an 81 year old female with PMH HTN, COPD, AFib, T2DM, who presented for an outpatient cardioversion and was found to have severe hyperglycemia. She was admitted with HHS. She had reportedly not been taking her insulin as prescribed. She was restarted on her insulin and given sliding scale correction. Her blood sugars quickly improved. She was debilitated and worked with physical and occupational therapy. She refused home health care on discharge. She was rescheduled for outpatient cardioversion next week. She was discharged home in stable condition. Labs and Pending Lab Test: Laboratory Tests 02/04/22 17:23: Glucometer 350H 02/04/22 20:25: Glucometer 244H 02/04/22 23:42: Glucometer 197H 02/05/22 03:05: White Blood Count 9.9, Red Blood Count 4.27, Hemoglobin 9.9L, Hematocrit 35, Mean Corpuscular Volume 81, Mean Corpuscular Hemoglobin 23L, Mean Corpuscular Hemoglobin Concent 29L, Red Cell Distribution Width 18.7H, Platelet Count 326, Mean Platelet Volume 10.4, Immature Granulocyte % (Auto) 0, Neutrophils (%) (Auto) 70, Lymphocytes (%) (Auto) 17, Monocytes (%) (Auto) 9, Eosinophils (%) (Auto) 3, Basophils (%) (Auto) 1, Neutrophils # (Auto) 6.9, Lymphocytes # (Auto) 1.7, Monocytes # (Auto) 0.9, Eosinophils # (Auto) 0.3, Basophils # (Auto) 0.1, Immature Granulocyte # (Auto) 0.0, Sodium Level 140, Potassium Level 4.1, Chloride Level 106, Carbon Dioxide Level 24, Anion Gap 10, Blood Urea Nitrogen 1 7, Creatinine 1.01, Estimat Glomerular Filtration Rate 56, BUN/Creatinine Ratio 17, Glucose Level 138H, Calcium Level 8.0L, Magnesium Level 2.1 6/8/22 03:35: Glucometer 150H 02/05/22 06:22: Glucometer 184H 02/05/22 06:49: Blood Gas Puncture Site L RAD, Blood Gas Patient Temperature 36.8, Arterial Blood pH 7.34*L, Arterial Blood Partial Pressure CO2 53H, Arterial Blood Partial Pressure O2 61L, Arterial Blood HCO3 28H, Arterial Blood Total CO2 29.7, Arterial Blood Oxygen Saturation 92L, Arterial Blood Base Excess 2.8H, Rajesh Test YES-POS, Blood Gas Ventilator Setting NO, Blood Gas Inspired Oxygen 25% BIPAP 02/05/22 08:07: Glucometer 181H 02/05/22 11:53: Glucometer 203H Microbiology 02/04/22 MRSA Screen - Final, Complete MRSA not isolated 02/04/22 Urine Culture - Final, Complete Gram Pos Mixed Bacterial Theresa Home Meds Active Novolog Flexpen (Insulin Aspart) 100 Unit/Ml (3 Ml) Solution 10 Units SQ AC 30 Days Lantus Solostar (Insulin Glargine,Hum.rec.anlog) 100 Unit/Ml (3 Ml) Insuln.pen 30 Unit SQ DAILY 30 Days Carvedilol 6.25 Mg Tablet 6.25 Mg PO BID Reported Neurontin (Gabapentin) 300 Mg Capsule 300 Mg PO BID Furosemide 40 Mg Tablet 40 Mg PO DAILY Feosol (Ferrous Sulfate) 325 Mg (65 Mg Iron) Tablet 325 Mg PO Acid Ticket Manager (FAMOTIDINE) (Famotidine) 20 Mg Tablet 20 Mg PO BID Docusate Sodium 100 Mg Tablet 100 Mg PO DAILY Lanoxin (Digoxin) 125 Mcg (0.125 Mg) Tablet 125 Mcg PO DAILY Diltiazem ER (Diltiazem HCl) 360 Mg Tab.er.24h 360 Mg PO DAILY Albuterol Sulfate 2.5 Mg/0.5 Ml Vial.neb 2.5 Mg INH TID PRN Ventolin Hfa (Albuterol Sulfate) 1 Puff Puff 2 Puff INH QID 1 PUFF = 90 MCG Assessment/Pt Instructions See instructions Discharge Planning: >30 minutes discharge planning Discharge Instructions Discharge Diet: ADA Diet Activity as Tolerated: Yes Consultations TeleICU Discharge Physical Examination Vital Signs Vital Signs Date Time Temp Pulse Resp B/P (MAP) Pulse Ox O2 Delivery O2 Flow Rate FiO2 02/05/22 13:00 87 02/05/22 13:00 18 89/55 97 NIV Bilevel 25.00 02/05/22 12:00 25 02/05/22 12:00 36.4 General Appearance: No Apparent Distress, WD/WN Respiratory: Lungs Clear, No Respiratory Distress Cardiovascular: Regular Rate, Rhythm, No Murmur Gastrointestinal: Normal Bowel Sounds, Soft Extremity: Normal Inspection, No Pedal Edema Skin: Normal Color, Warm/Dry Neurologic/Psychiatric: Alert, Normal Mood/Affect Allergies: Coded Allergies: NKANo Known Allergies (Verified Allergy, Unknown, 04/01/06) Discharge Summary Date of Admission Feb 04, 2022 at 11:30 Date of Discharge Feb 05, 2022 at 13:00 Discharge Date: Feb 05, 2022 Discharge Time: 13:00 Admission Diagnosis T2DM with HHS Discharge Diagnosis T2DM with HHS Acute on chronic respiratory failure with hypoxia and hypercapnia AFib (1) Type 2 diabetes mellitus with hyperosmolar hyperglycemic state (HHS) Status: Acute (2) Acute on chronic respiratory failure with hypoxia and hypercapnia Status: Acute FRANCES DE LOS SANTOS MD Feb 05, 2022 17:05
== END 2022-02-05 13:00 | disposition home or self-care (01) | DRG 637 ==
LOC: EDUNIT# 08:45 → ER 08:46 → ICU 11:30
PROVIDERS: ADMIT Internal Medicine; ATTEND Internal Medicine
DX: E11.00 Type 2 diabetes mellitus with hyperosmolarity without nonketotic hyperglycemic-hyperosmolar coma (NKHHC) (principal); J96.22 Acute and chronic respiratory failure with hypercapnia; J96.21 Acute and chronic respiratory failure with hypoxia; F05 Delirium due to known physiological condition; N17.9 Acute kidney failure, unspecified; J44.1 Chronic obstructive pulmonary disease with (acute) exacerbation; I42.9 Cardiomyopathy, unspecified; N39.0 Urinary tract infection, site not specified; I12.9 Hypertensive chronic kidney disease with stage 1 through stage 4 chronic kidney disease, or unspecified chronic kidney disease; E11.22 Type 2 diabetes mellitus with diabetic chronic kidney disease; N18.9 Chronic kidney disease, unspecified; D64.9 Anemia, unspecified; H54.7 Unspecified visual loss; Z79.4 Long term (current) use of insulin; Z91.14 Patient's other noncompliance with medication regimen; Z79.02 Long term (current) use of antithrombotics/antiplatelets
CPT/HCPCS: 36415; 36600; 80048; 80053; 81000; 82010; 82805; 82947; 83735; 83930; 85025; 86141; 87081; 87088; 94660; 99291

== ENCOUNTER 2022-02-11 11:00 | Day surgery (SDC) | payer MEDICARE, MEDICAID ==
[2022-02-04 07:41] VITALS: BP 125/76
[2022-02-04 07:48] LABS: HEMATOCRIT 38 % (35-52); MEAN CORPUSCULAR HEMOGLOBIN 23 pg (25-34); MEAN CORPUSCULAR HGB CONC 29 g/dL (32-36); MEAN CORPUSCULAR VOLUME 81 fL (80-99); MEAN PLATELET VOLUME 10.9 fL (9.0-12.2); PLATELET COUNT 389 10^3/uL (130-400); WHITE BLOOD COUNT 9.4 10^3/uL (4.3-11.0)
[2022-02-04 08:09] LABS: INR 1.7 (0.8-1.4); PROTHROMBIN TIME PATIENT 20.8 SEC (12.2-14.7)
[2022-02-04 08:11] LABS: ALBUMIN 3.9 GM/DL (3.2-4.5); BILIRUBIN,TOTAL 0.5 MG/DL (0.1-1.0); CALCIUM 8.6 MG/DL (8.5-10.1); CREATININE SERUM 1.83 MG/DL (0.60-1.30); POTASSIUM 5.4 MMOL/L (3.6-5.0); TOTAL PROTEIN 6.6 GM/DL (6.4-8.2)
--- NOTE | 2022-02-04 12:17 | Tele-ICU Progress Note ---
Progress Note Video assessment done , Hemodynamically stable Available charting reviewed NO TELE-ICU CONSULT REQUESTED CONTINUE TO MONITOR PER USUAL TELE-ICU PROTOCOL No need for Tele-ICU interventions Plans as delineated by bedside physicians / consultants Focused Exam Height, Weight, BMI Height: '" Weight: lbs. oz. kg; 35.46 BMI Method: EVERETT GREENWOOD MD Feb 04, 2022 12:17
[2022-02-11] VITALS (7 sets, daily range): BP systolic 108–129; BP diastolic 52–68
[~2022-02-11] VITALS: Ht 160 cm; Wt 90.8 kg
[2022-02-11 08:25] LABS: HEMATOCRIT 36 % (35-52); HEMOGLOBIN 10.2 g/dL (11.5-16.0); MEAN CORPUSCULAR HEMOGLOBIN 22 pg (25-34); MEAN CORPUSCULAR HGB CONC 28 g/dL (32-36); MEAN CORPUSCULAR VOLUME 80 fL (80-99); MEAN PLATELET VOLUME 9.8 fL (9.0-12.2); PLATELET COUNT 375 10^3/uL (130-400)
[2022-02-11 08:38] LABS: INR 1.8 (0.8-1.4); PROTHROMBIN TIME PATIENT 21.3 SEC (12.2-14.7)
[2022-02-11 08:44] LABS: ALBUMIN 3.8 GM/DL (3.2-4.5); BILIRUBIN,TOTAL 0.4 MG/DL (0.1-1.0); CALCIUM 8.9 MG/DL (8.5-10.1); CREATININE SERUM 1.41 MG/DL (0.60-1.30); POTASSIUM 4.6 MMOL/L (3.6-5.0); TOTAL PROTEIN 6.4 GM/DL (6.4-8.2)
--- NOTE | 2022-02-11 09:31 | Anesthesia-General Post-Op ---
MAC Patient Condition Mental Status/LOC: Same as Preop Cardiovascular: Satisfactory Nausea/Vomiting: Absent Respiratory: Satisfactory Pain: Controlled Complications: Absent Post Op Complications Complications None Follow Up Care/Instructions Patient Instructions None needed. Anesthesiology Discharge Order Discharge Order Patient is doing well, no complaints, stable vital signs, no apparent adverse anesthesia problems. No complications reported per nursing. JEREMI TORRES CRNA Feb 11, 2022 09:31
[~2022-02-11 11:00] MED LIST changes: +CHOL500049 PO; +HYDR-700 PO; +INSU100I10 SQ; +INSU100I14 SQ; +LEVO5TAB12 PO; +NS IV 1000 ML 1,000 ML IV SCH; +NS IV 1000 ML 1,000 ML ONE; +PRED5TAB PO; +RIVA20TA PO; +SIMV20TA26 PO; +SPIR25TA PO; +VENL150C3 PO; +proPOfol 200 MG/20 ML (DIPRIVAN) VIAL IV ONE
--- NOTE | 2022-02-11 15:49 | OPERATIVE REPORT ---
DATE OF SERVICE: 02/11/2022 PREOPERATIVE DIAGNOSIS: Atrial fibrillation. POSTOPERATIVE DIAGNOSIS: Sinus rhythm. PROCEDURE: External electrical cardioversion. INDICATIONS: The patient is an 81-year-old lady with atrial fibrillation. Heart rate has been difficult to control. She has remained short of breath primarily due to rapid ventricular response despite treatment. External electrical cardioversion was carried out today after having obtained an informed consent. DESCRIPTION OF PROCEDURE: [facility] The nurse retort pre cooker provided short acting anesthesia. External electrical cardioversion was carried out through external patches delivered 120 joules of biphasic shock, which changed atrial fibrillation to sinus rhythm. She tolerated the procedure well. Job ID: [id number] DocumentID: [id number] Dictated Date: 02/11/2022 09:29:16 [employer]ola Patcher Helper Date: 02/11/2022 15:48:52 Dictated By: ZHAO SANFORD MD, MA, FACP, FACC,
== END 2022-02-11 11:05 | disposition home or self-care (01) ==
LOC: CATH 11:00
PROVIDERS: ATTEND Internal Medicine Cardiovascular Disease
DX: I48.0 Paroxysmal atrial fibrillation (principal); E11.22 Type 2 diabetes mellitus with diabetic chronic kidney disease; Z87.891 Personal history of nicotine dependence; I34.0 Nonrheumatic mitral (valve) insufficiency; N18.4 Chronic kidney disease, stage 4 (severe); I65.29 Occlusion and stenosis of unspecified carotid artery; E66.9 Obesity, unspecified; Z68.35 Body mass index [BMI] 35.0-35.9, adult; E11.42 Type 2 diabetes mellitus with diabetic polyneuropathy; I42.0 Dilated cardiomyopathy; I50.42 Chronic combined systolic (congestive) and diastolic (congestive) heart failure; Z79.82 Long term (current) use of aspirin; Z79.899 Other long term (current) drug therapy; Z79.4 Long term (current) use of insulin
CPT/HCPCS: 36415; 80053; 80061; 85027; 85610; 85730; 87081; 92960; 93005

== ENCOUNTER 2022-06-03 19:30 | Outpatient (CLI) | payer OTHER, MEDICAID ==
[~2022-06-03 19:30] MED LIST changes: -NS IV 1000 ML 1,000 ML IV SCH; -NS IV 1000 ML 1,000 ML ONE; -proPOfol 200 MG/20 ML (DIPRIVAN) VIAL IV ONE
== END 2022-06-04 06:32 | disposition home or self-care (01) ==
LOC: SLEEP 19:30
PROVIDERS: ATTEND Nurse Practitioner
DX: G47.33 Obstructive sleep apnea (adult) (pediatric) (principal); G47.10 Hypersomnia, unspecified; I50.9 Heart failure, unspecified; G47.36 Sleep related hypoventilation in conditions classified elsewhere
CPT/HCPCS: 95810